=== PATIENT | male | born 1990 | race African-American/Black ===

== ENCOUNTER 2020-11-28 17:23 | Emergency (ER) | payer OTHER ==
[2020-11-28 17:35] VITALS: BP 120/71; PULSE 57; TEMP 98.7; BMI 25.8
[2020-11-28] MEDS ORDERED: SODIUM CHLORIDE 0.9% 500 ML INFUS.BAG IV ONE (20:00)
[2020-11-28] MEDS ORDERED: MECLIZINE HCL 25 MG TABLET (FP) PO ONE (20:00)
[2020-11-28] MEDS ORDERED: METOCLOPRAMIDE HCL INJECTION 10 MG/2 ML VIAL IVPUSH ONE (20:00)
[2020-11-28] MEDS ORDERED: METOCLOPRAMIDE HCL INJECTION 10 MG/2 ML VIAL ONE (20:25)
[2020-11-28] MEDS ORDERED: MECLIZINE HCL 25 MG TABLET (FP) ONE (20:25)
[2020-11-28 21:19] LABS: BASO % 0.3 % (0-2.0); EOS % 1.6 % (0-4.5); HEMATOCRIT 41.1 % (35.4-49); HEMOGLOBIN 13.8 GM/dL (11.7-16.9); LYMPH % 28.2 % (8-40); MCH 26.7 pg (25.7-33.7); MCHC 33.6 g/dl (32.0-35.9); MEAN CELL VOLUME 79.2 fl (80-96); MEAN PLT VOLUME 7.3 fl (7.5-11.1); MONO % 8.6 % (3.8-10.2); NEUT % 61.3 % (42.8-82.8); PLATELET COUNT 326 10^3/uL (134-434); RBC 5.18 M/mm3 (4.00-5.60); RDW 15.6 % (11.9-15.9); WHITE BLOOD COUNT 4.7 K/mm3 (4.0-10.0)
[2020-11-28 21:31] LABS: ALBUMIN 3.7 g/dl (3.4-5.0); CALCIUM 9.3 mg/dL (8.5-10.1)
[2020-11-28 21:32] LABS: BLOOD UREA NITROGEN 10.1 mg/dL (7-18)
[2020-11-28 21:36] LABS: BILIRUBIN,TOTAL 0.8 mg/dL (0.2-1)
== END 2020-11-28 23:34 | disposition home or self-care (01) ==
LOC: JER 17:23
PROC: 3E033GC Introduction of Other Therapeutic Substance into Peripheral Vein, Percutaneous Approach (ICD-10-PCS; principal; 2020-11-28)
DX: R42 Dizziness and giddiness (principal)
CPT/HCPCS: 36415; 70450-TC; 80053; 85025; 93005; 93010; 99285-25